=== PATIENT | female | born 1960 | race African-American/Black ===

== ENCOUNTER 2024-05-31 18:03 | Emergency (ER) | payer OTHER ==
[2024-05-31 20:39] LABS: Absolute Basophils 0.1 K/uL (0-0.5); Absolute Eosinophils 0.1 K/uL (0-0.5); Absolute Lymphocytes (CBC) 3.4 K/uL (0.7-4.9); Absolute Monocytes 0.7 K/uL (0.1-1.3); Absolute Neutrophil 6.3 K/uL (1.8-8.0); Basophils % 0.6 % (0-1.3); Eosinophils % 0.7 % (0-4.4); Hematocrit 41.6 % (36.0-45.0); Hemoglobin 14.1 g/dL (12.0-15.0); Lymphocytes % 32.3 % (15.3-44.8); MCV 91.4 fL (80-100); MPV 9.9 fL (7.6-11.3); Monocytes % 6.5 % (3.3-12.3); Neutrophils % 59.9 % (41.7-73.7); Platelets 223 thou/uL (152-406); RBC Red Blood Cell Count 4.55 M/uL (3.86-4.86); Red Cell Distribution Width 13.3 % (12.1-15.2)
[2024-05-31 20:45] LABS: PT Prothrombin Time 11.2 SECONDS (9.4-12.5); Protime INR 1.07
[2024-05-31 20:59] LABS: ALT/SGPT 17 U/L (13-56); Albumin 3.5 g/dL (3.4-5.0); Albumin/Globulin Ratio 0.9 (1.1-1.8); Alkaline Phosphatase 114 U/L (45-117); Anion Gap 9.8 mEq/L (5.0-15.0); BUN Blood Urea Nitrogen 13 mg/dL (7-18); Bicarbonate 23 mEq/L (21-32); Bilirubin Direct 0.2 mg/dL (0-0.2); Bilirubin Indirect, Calculated 0.6 mg/dL (0.2-0.8); Bilirubin Total 0.8 mg/dL (0.2-1.0); Globulin 3.8 g/dL (2.3-3.5); Glomerular Filtration Rate 56 ml/min (=/>90); Glucose Level 97 mg/dL (74-106); Lipase 57 U/L (13-75); Magnesium 2.1 mg/dL (1.6-2.4); NT PRO-BNP 25 pg/mL (<125); Potassium 3.8 mEq/L (3.5-5.1); Protein, Total 7.3 g/dL (6.4-8.2); Sodium Level 138 mEq/L (136-145); Troponin High Sensitivity 10.3 pg/mL (<58.9)
[2024-05-31 21:00] LABS: AST/SGOT < 10 U/L (15-37)
--- NOTE | 2024-05-31 21:29 | RAD REPORT ---
EXAM: CT brain without contrast HISTORY: Alteration of consciousness/ COMPARISON: None TECHNIQUE: Multiple contiguous axial images were obtained and a CT of the brain without contrast.. Sagittal and coronal reconstruction performed. Automated exposure control, adjustment of the mA and/or kV according to patient size, and/or iterative reconstruction. Unless otherwise specified, incidental f indings do not require dedicated imaging follow-up FINDINGS: An intracranial bleed is not seen Ventricles are normal caliber No extra-axial fluid collection noted No significant hypodensity within the brain No fluid within the visualized sinuses or mastoids noted. IMPRESSION: No acute intracranial abnormality noted. If the patient continues to have symptoms to suggest an acute intracranial abnormality then MRI of th e brain would be recommended.
[2024-05-31] MEDS ORDERED: DIPHENHYDRAMINE 25 MG TAB/CAP ONE (21:31)
[2024-05-31] MEDS ORDERED: ONDANSETRON 4 MG/2 ML VIAL ONE (21:31)
[2024-05-31] MEDS ORDERED: FAMOTIDINE 20 MG/2 ML VIAL IV ONE (21:32)
[2024-05-31] MEDS ORDERED: NA CHLORIDE 0.9% 1,000 ML ONE (21:32)
[2024-05-31] MEDS ORDERED: DIPHENOX/ATROP SULF 1 TAB PO ONE (21:32)
--- NOTE | 2024-05-31 21:35 | RAD REPORT ---
EXAMINATION: CT ABDOMEN AND PELVIS WITH CONTRAST CLINICAL INDICATION: Abdominal pain TECHNIQUE: CT abdomen and pelvis was performed, after the administration of 100 cc Isovue-300.. Sagit bridger and coronal reconstructions were obtained. One or more of the following dose reduction techniques were used: Automated exposure control, adjustment of the mA and kV according to patient si ze, and iterative reconstruction. Unless otherwise specified, incidental findings do not require dedicated imaging follow-up. [id number]. Oral contrast was not given which limits evaluation of bowel and appendix. COMPARISON: .None FINDINGS: Images are degraded by respiratory motion artifact. 2.3 cm calculus right renal pelvis. No hydronephrosis. Liver, spleen, pancreas, left kidney and right adrenal gland mostly normal. 2 cm left adrenal nodule. Hounsfield unit 37 Liver, spleen, pancreas, adrenals and kidneys appear unremarkable No evidence of diverticulitis. Calcified fibroids are uterus. Normal appendix : IMPRESSION: 2.3 cm nonobstructing calculus right renal pelvis 2 cm left adrenal nodule probably an adenoma. Recommend 1 year follow up adrenal washout CT. If stabl e ? 1 year, no further follow-up imaging.
--- NOTE | 2024-05-31 21:38 | RAD REPORT ---
Procedure: Chest Single View HISTORY: Cough COMPARISON: none FINDINGS: The lungs appear clear of acute infiltrate. No significant pleural effusion noted. The heart is mildly enlarged.. IMPRESSION: No acute abnormality is displayed.
--- NOTE | 2024-05-31 22:40 | ER ---
Nurse's Notes [facility] Name: Kwan Correa Age: 63 yrs Sex: Female : 1960 Arrival Date: 05/31/2024 Time: 18:03 Bed 21 Private MD: Diagnosis: Diarrhea, Acute gastroenteritis, chronic methadone dependency, Presentation: 05/31 19:09 Chief complaint: Patient states: c/o generalized pain, n/v/d, and visual hallucinations al5 x24 hours. patient states she has been on methadone for the past 8 years but has not had a dose in 2 weeks. Coronavirus screen: At this time, the client does not indicate any symptoms associated with coronavirus-19. Ebola Screen: No symptoms or risks identified at this time. Initial Sepsis Screen: Does the patient meet any 2 criteria? No. Patient's initial sepsis screen is negative. Does the patient have a suspected source of infection? No. Patient's initial sepsis screen is negative. Risk Assessment: Do you want to hurt yourself or someone else? Patient reports no desire to harm self or others. Onset of symptoms was May 30, 2024. 19:09 Method Of Arrival: Ambulatory al5 19:09 Acuity: KARINA 3 al5 Triage Assessment: 19:11 General: Appears in no apparent distress. uncomfortable, Behavior is calm, cooperative. al5 Pain: Complains of pain in generalized Pain currently is 10 out of 10 on a pain scale. Quality of pain is described as aching, dull, sharp. EENT: No signs and/or symptoms were reported regarding the EENT system. Neuro: Level of Consciousness is awake, alert, obeys commands, Oriented to person, place, time, situation, states she has been having visual hallucinations. Cardiovascular: Capillary refill < 3 seconds Patient's skin is warm and dry. Respiratory: Airway is patent Respiratory effort is even, unlabored, Respiratory pattern is regular, symmetrical. GI: Abdomen is round non-distended, Reports diarrhea, nausea, Pain is 10 out of 10 on a pain scale. vomiting. : No signs and/or symptoms were reported regarding the genitourinary system. Derm: Skin is intact, is healthy with good turgor, Skin is pink, warm \T\ dry. normal. Musculoskeletal: Reports generalized pain. Historical: - Allergies: 19:11 No Known Allergies; al5 - PMHx: 19:11 None; al5 - PSHx: 19:11 section; al5 - Immunization history:: Adult Immunizations up to date. - Infectious Disease History:: Denies. - Social history:: Smoking status: Patient reports the use of cigarette tobacco products, smokes 0.33 packs per day. - Family history:: not pertinent. Screenin:20 [facility] ED Fall Risk Assessment (Adult) History of falling in the last 3 months, ay including since admission No falls in past 3 months (0 pts) Confusion or Disorientation No (0 pts) Intoxicated or Sedated No (0 pts) Impaired Gait No (0 pts) Mobility Assist Device Used No (0 pt) Altered Elimination No (0 pt) Score/Fall Risk Level 0 - 2 = Low Risk Oriented to surroundings, Maintained a safe environment, Educated pt \T\ family on fall prevention, incl call for assistance when getting out of bed. Abuse screen: Denies threats or abuse. Nutritional screening: No deficits noted. Tuberculosis screening: No symptoms or risk factors identified. Assessment: 19:20 General: Appears in no apparent distress. comfortable, Behavior is combative, ay uncooperative. Pain: Denies pain. Neuro: Level of Consciousness is awake, alert, Oriented to person, place, time, situation, Speech is normal. Cardiovascular: Capillary refill < 3 seconds. Respiratory: Airway is patent Respiratory effort is even, unlabored, Respiratory pattern is regular, symmetrical. GI: Abdomen is round Bowel sounds present X 4 quads. : No signs and/or symptoms were reported regarding the genitourinary system. EENT: No signs and/or symptoms were reported regarding the EENT system. Derm: No signs and/or symptoms reported regarding the dermatologic system. Vital Signs: 19:09 BP 133 / 80; Pulse 71; Resp 18; Temp 98.4; Pulse Ox 100% on R/A; Weight 81.65 kg; al5 Height 5 ft. 1 in. ; Pain 10/10; 20:00 BP 114 / 60; Pulse 62; Resp 18; Temp 98.2; Pulse Ox 98% on R/A; ay 23:00 BP 124 / 66; Pulse 60; Resp 19; Pulse Ox 98% ; ay 19:09 Body Mass Index 34.01 (81.65 kg, 154.94 cm) al5 19:09 Pain Scale: Adult al5 Melisa Coma Score: 22:41 Eye Response: spontaneous(4). Motor Response: obeys commands(6). Verbal Response: sp4 oriented(5). Total: 15. ED Course: 18:08 Patient arrived in ED. al6 19:11 Triage completed. al5 19:12 Arm band placed on right wrist. Patient placed in waiting room, in view of staff al5 members, Patient notified of wait time. 19:20 Patient has correct armband on for positive identification. Bed in low position. Call ay light in reach. Side rails up X2. 19:20 Inserted saline lock: 20 gauge in right antecubital area, using aseptic technique. ay 19:31 Elia Arevalo MD is Attending Physician. enrrique 20:07 Attending Physician role handed off by Elia Arevalo MD sp4 20:07 Tao Dotson MD is Attending Physician. sp4 20:24 XRAY Chest (1 view) In Process Unspecified. EDMS 21:20 CT Head Brain wo Cont In Process Unspecified. EDMS 21:22 Darryl Molina, RN is Primary Nurse. ay 21:25 CT Abd/Pelvis - IV Contrast Only In Process Unspecified. EDMS 23:50 IV discontinued, intact, bleeding controlled, No redness/swelling at site. Pressure ay dressing applied. Administered Medications: 21:50 Drug: diphenhydrAMINE PO 25 mg PO once Route: PO; ay 23:00 Follow up: Response: No adverse reaction ay 21:51 Drug: Diphenoxylate-Atropine PO 2 tabs PO once Route: PO; ay 23:00 Follow up: Response: No adverse reaction ay Drug: NS 0.9% IV 1000 ml IV at 1 bolus Per protocol; to be given as a bolus over 60 ay minutes Route: IV; Rate: 1 bolus; Site: right antecubital; 23:23 Follow up: IV Status: Completed infusion; IV Intake: 1000ml ay Drug: Famotidine IVP 20 mg IVP once; dilute with 10 mL 0.9% NaCl; give over 2 minutes ay Route: IVP; Site: right antecubital; 23:00 Follow up: Response: No adverse reaction ay Drug: Ondansetron IVP 4 mg IVP once; over 2 minutes Route: IVP; Site: right antecubital;ay 23:00 Follow up: Response: No adverse reaction ay Intake: 23:23 IV: 1000ml; Total: 1000ml. ay Outcome: 22:40 Discharge ordered by . sp4 23:50 Discharged to home ambulatory, ay 23:50 Condition: stable 23:56 Patient left the ED. vc1 Signatures: Dispatcher [employer] EDElia Cook MD MD cha Calcote, Vanessa RN RN vc1 Tao Dotson MD MD sp4 Petra Johnson RN RN al5 Darryl Molina, RN RN Molly Art al6
--- NOTE | 2024-05-31 22:40 | EDPHYS ---
Physician Documentation [facility] Name: Kwan Correa Age: 63 yrs Sex: Female : 1960 Arrival Date: 05/31/2024 Time: 18:03 Bed 21 Private MD: ED Physician Tao Dotson HPI: 05/31 20:07 This 63 yrs old Black Female presents to ER via Ambulatory with complaints of Diarrhea, sp4 hallucination. 22:41 Patient presents with complains of acute diarrhea and also states she is out of her sp4 methadone for the past 2 weeks. Patient reported also some hallucinatory experience.. Historical: - Allergies: 19:11 No Known Allergies; al5 - PMHx: 19:11 None; al5 - PSHx: 19:11 section; al5 - Immunization history:: Adult Immunizations up to date. - Infectious Disease History:: Denies. - Social history:: Smoking status: Patient reports the use of cigarette tobacco products, smokes 0.33 packs per day. - Family history:: not pertinent. ROS: 22:41 Constitutional: Negative for fever, chills, and weight loss, positive for diarrhea sp4 positive for hallucinations 22:41 All other systems are negative, Exam: 22:41 Constitutional: This is a well developed, well nourished patient who is awake, alert, sp4 and in no acute distress. Head/Face: Normocephalic, atraumatic. Eyes: Pupils equal round and reactive to light, extra-ocular motions intact. Lids and lashes normal. Conjunctiva and sclera are not injected. Cornea within normal limits. Periorbital areas with no swelling, redness, or edema. ENT: Nares patent. No nasal discharge, no septal abnormalities noted. Tympanic membranes are normal and external auditory canals are clear. Oropharynx with no redness, swelling, or masses, exudates, or evidence of obstruction, uvula midline. Mucous membranes moist. Neck: Trachea midline, no thyromegaly or masses palpated, and no cervical lymphadenopathy. Supple, full range of motion without nuchal rigidity, or vertebral point tenderness. Chest/axilla: Normal chest wall appearance and motion. Nontender with no deformity. No lesions are appreciated. Cardiovascular: Regular rate and rhythm with a normal S1 and S2. No gallops, murmurs, or rubs. Normal PMI, no JVD. No pulse deficits. Respiratory: Lungs have equal breath sounds bilaterally, clear to auscultation and percussion. No rales, rhonchi or wheezes noted. No increased work of breathing, no retractions or nasal flaring. Abdomen/GI: Soft, with normal bowel sounds. No distension or tympany. No guarding or rebound. No evidence of tenderness throughout. Back: No spinal tenderness. No costovertebral tenderness. Skin: Warm, dry with normal turgor. Normal color with no rashes, no lesions, and no evidence of cellulitis. MS/ Extremity: Pulses equal, no cyanosis. Neurovascular intact. Full, normal range of motion. Neuro: Awake and alert, GCS 15, oriented to person, place, time, and situation. Cranial nerves II-XII grossly intact. Motor strength 5/5 in all extremities. Sensory grossly intact. Psych: Awake, alert, with orientation to person, place and time. Behavior, mood, and affect are within normal limits 22:41 ECG was reviewed by the Attending Physician. EKG 1957 normal sinus rhythm rate 65 normal EKG Vital Signs: 19:09 BP 133 / 80; Pulse 71; Resp 18; Temp 98.4; Pulse Ox 100% on R/A; Weight 81.65 kg; al5 Height 5 ft. 1 in. ; Pain 10/10; 20:00 BP 114 / 60; Pulse 62; Resp 18; Temp 98.2; Pulse Ox 98% on R/A; ay 23:00 BP 124 / 66; Pulse 60; Resp 19; Pulse Ox 98% ; ay 19:09 Body Mass Index 34.01 (81.65 kg, 154.94 cm) al5 19:09 Pain Scale: Adult al5 [place] Coma Score: 22:41 Eye Response: spontaneous(4). Motor Response: obeys commands(6). Verbal Response: sp4 oriented(5). Total: 15. MDM: 19:31 Medical Screening Exam initiated enrrique 22:44 ED course: EXAM: CT brain without contrast HISTORY: Alteration of consciousness/ sp4 COMPARISON: None TECHNIQUE: Multiple contiguous axial images were obtained and a CT of the brain without contrast.. Sagittal and coronal reconstruction performed. Automated exposure control, adjustment of the mA and/or kV according to patient size, and/or iterative reconstruction. Unless otherwise specified, incidental findings do not require dedicated imaging follow-up FINDINGS: An intracranial bleed is not seen Ventricles are normal caliber No extra-axial fluid collection noted No significant hypodensity within the brain No fluid within the visualized sinuses or mastoids noted. IMPRESSION: No acute intracranial abnormality noted. If the patient continues to have symptoms to suggest an acute intracranial abnormality then MRI of the brain would be recommended. . ED course: EXAMINATION: CTABDOMEN AND PELVIS WITH CONTRAST CLINICAL INDICATION: Abdominal pain TECHNIQUE: CT abdomen and pelvis was performed, after the administration of 100 cc Isovue-300.. Sagittal and coronal reconstructions were obtained. One or more of the following dose reduction techniques were used: Automated exposure control, adjustment of the mA and kV according to patient size, and iterative reconstruction. Unless otherwise specified, incidental findings do not require dedicated imaging follow-up. [id number]. Oral contrast was not given which limits evaluation of bowel and appendix. COMPARISON: .None FINDINGS: Images are degraded by respiratory motion artifact. 2.3 cm calculus right renal pelvis. No hydronephrosis. Liver, spleen, pancreas, left kidney and right adrenal gland mostly normal. 2 cm left adrenal nodule. Hounsfield unit 37 Liver, spleen, pancreas, adrenals and kidneys appear unremarkable No evidence of diverticulitis. Calcified fibroids are uterus. Normal appendix : IMPRESSION: 2.3 cm nonobstructing calculus right renal pelvis 2 cm left adrenal nodule probably an adenoma. Recommend 1 year follow up adrenal washout CT. If stable ? 1 year, no further follow-up imaging. . 22:44 ED course: Procedure: Chest Single View HISTORY: Cough COMPARISON: none FINDINGS: The sp4 lungs appear clear of acute infiltrate. No significant pleural effusion noted. The heart is mildly enlarged.. IMPRESSION: No acute abnormality is displayed.. 22:44 Differential diagnosis: gastritis, pancreatitis, diverticulitis, viral gastroenteritis, sp4 gastroenteritis. Data reviewed: vital signs, nurses notes, lab test result(s), EKG, radiologic studies, CT scan, plain films. Consideration of Admission/Observation Escalation of care including admission/observation considered. ED course: At this time there is no evidence of acute emergent medical condition. Patient is not having signs of acute hallucinations on exam. Patient is not acutely psychotic. Patient requested methadone. Patient's request for methadone was refused. Patient stable for discharge from the hospital. 05/31 19:33 Order name: Basic Metabolic Panel; Complete Time: 21:34 05/31 19:33 Order name: CBC with Diff; Complete Time: 21:34 enrrique 05/31 19:33 Order name: LFT's; Complete Time: 21:34 05/31 19:33 Order name: Magnesium; Complete Time: 21:34 05/31 19:33 Order name: NT PRO-BNP; Complete Time: 21:34 05/31 19:33 Order name: PT-INR; Complete Time: 21:34 05/31 19:33 Order name: Troponin HS; Complete Time: 21:34 05/31 19:33 Order name: Lipase; Complete [facility]: [facility] 05/[facility] 19:33 Order name: XRAY Chest (1 view); Complete Time: 21:43 [facility] 05/31 19:33 Order name: CT Abd/Pelvis - IV Contrast Only; Complete Time: 21:43 [facility] 05/31 19:33 Order name: CT Head Brain wo Cont; Complete Time: 21:34 enrrique 05/31 19:33 Order name: EKG; Complete Time: 19:34 05/31 19:33 Order name: Cardiac monitoring; Complete Time: 21:23 05/31 19:33 Order name: EKG - Nurse/Tech; Complete Time: 20:15 [facility] 05/31 19:33 Order name: IV Saline Lock; Complete Time: 21:23 [facility] 05/31 19:33 Order name: Labs collected and sent; Complete Time: 21:23 enrrique 05/31 19:33 Order name: O2 Per Protocol; Complete Time: 21:23 05/31 19:33 Order name: O2 Sat Monitoring; Complete Time: 21:23 [facility] EC:58 Rate is 65 beats/min. Rhythm is regular, Normal Sinus Rhythm. QRS [place] is Normal. [place] sp4 interval is normal. QRS interval is normal. QT interval is normal. No Q waves. T waves are Normal. No ST changes noted. Clinical impression: Normal ECG. Interpreted by me. Reviewed by me. Administered Medications: 21:50 Drug: diphenhydrAMINE PO 25 mg PO once Route: PO; ay 23:00 Follow up: Response: No adverse reaction ay 21:51 Drug: Diphenoxylate-Atropine PO 2 tabs PO once Route: PO; ay 23:00 Follow up: Response: No adverse reaction ay :58 Drug: NS 0.9% IV 1000 ml IV at 1 bolus Per protocol; to be given as a bolus over 60 ay minutes Route: IV; Rate: 1 bolus; Site: right antecubital; 23:23 Follow up: IV Status: Completed infusion; IV Intake: 1000ml ay : Drug: Famotidine IVP 20 mg IVP once; dilute with 10 mL 0.9% NaCl; give over 2 minutes ay Route: IVP; Site: right antecubital; 23:00 Follow up: Response: No adverse reaction ay : Drug: Ondansetron IVP 4 mg IVP once; over 2 minutes Route: IVP; Site: right antecubital;ay 23:00 Follow up: Response: No adverse reaction ay Disposition Summary: 05/31/24 22:40 Discharge Ordered Notes: Location: Home sp4 Problem: new sp4 Symptoms: have improved sp4 Condition: Stable sp4 Diagnosis - Diarrhea, Acute gastroenteritis, chronic methadone dependency, sp4 Followup: sp4 - With: Private Physician - When: 7 - 10 days - Reason: Recheck today's complaints Discharge Instructions: - Discharge Summary Sheet sp4 - Diarrhea, Adult, Kidb-oq-Hilo sp4 Forms: - Patient Portal Instructions sp4 Signatures: Dispatcher [employer] Elia Smith MD MD cha Potepalov, Sergey, MD MD sp4 Petra Johnson, RN RN al5 Darryl Molina RN RN ay Corrections: (The following items were deleted from the chart) 19:34 19:33 BASIC METABOLIC PANEL+C.LAB.BRZ ordered. EDMS EDMS 19:34 19:33 CBC+H.LAB.BRZ ordered. EDMS EDMS 19:34 19:33 HEPATIC FUNCTION+C.LAB.BRZ ordered. EDMS EDMS 19:34 19:33 MAGNESIUM+C.LAB.BRZ ordered. EDMS EDMS 19:34 19:33 PROBNP+C.LAB.BRZ ordered. EDMS EDMS 19:34 19:33 PROTIME (+INR)+COAG.LAB.BRZ ordered. EDMS EDMS 19:34 19:33 Troponin High Sensitivity+C.LAB.BRZ ordered. EDMS EDMS 19:34 19:33 Fecal Leukocyte Stain+BA.LAB.BRZ ordered. EDMS EDMS : 19:33 Stool Culture+BA.LAB.BRZ ordered. EDMS EDMS 19:33 LIPASE+C.LAB.BRZ ordered. EDMS EDMS 19:33 Urinalysis+U.LAB.BRZ ordered. EDMS EDMS
[2024-06-01 00:06] VITALS: BP 133/80; TEMP 98.4; O2SAT 100
== END 2024-05-31 23:56 | disposition home or self-care (01) ==
LOC: ER 18:03
DX: K52.9 Noninfective gastroenteritis and colitis, unspecified (principal); F11.20 Opioid dependence, uncomplicated; F17.210 Nicotine dependence, cigarettes, uncomplicated
CPT/HCPCS: 96361; 85025; 80048; 36415; 83735; 85610; 80076; 84484; 83690; 83880; 70450; 74177; 71045; 96375; 96374; 99285; Q9967; J2405; J7030; 93005